=== PATIENT | female | born 1995 | race Caucasian/White ===

== ENCOUNTER → 2023-11-30 | Outpatient (REF) | payer OTHER | LOC: M SFHCDERM 17:11 | PROVIDERS: ATTEND Nurse Practitioner Family | DX: D22.9 Melanocytic nevi, unspecified (principal) ==

== ENCOUNTER → 2025-07-24 | Outpatient (REF) | payer OTHER | LOC: M SFHCDERM 17:28 | PROVIDERS: ATTEND Nurse Practitioner Family | DX: D22.4 Melanocytic nevi of scalp and neck (principal) ==